=== PATIENT | male | born 1950 | race Caucasian/White ===

== ENCOUNTER 2022-08-04 08:00 | Outpatient (CLI) | payer MEDICARE, OTHER ==
--- NOTE | 2022-08-04 23:53 | XRAY Report ---
PROCEDURE: Chest 2 View X-Ray INDICATIONS: SHORTNESS OF BREATH TECHNIQUE: 2 view(s) of the chest. COMPARISON: None. FINDINGS: Surgical changes and devices: None. Lungs and pleura: Mixed interstitial and alveolar opacity in the right posterior lower lung and ques tionably in the left posterior lower lung. Linear opacity is seen anteriorly in the right upper lobe on the lateral view. No pleural effusion or pneumothorax. Mediastinum: Mediastinal contours are normal. Heart size is normal. Bones and chest wall: No suspicious bony abnormalities. Acute right posterior lateral ninth rib frac ture. A few left rib deformities of remote, healed 6 through ninth rib fractures. Soft tissues appear unremarkable. IMPRESSION: 1. Right infrahilar, possibly bibasilar mixed interstitial and alveolar opacities with differential d iagnosis of infectious pneumonia versus aspiration. 2. At least one visible acute right rib fracture but no evidence of pleural effusion or pneumothorax Reviewed by: Tati Landry MD on 08/04/2022 11:51 PM PDT Approved by: Tati Landry MD on 08/04/2022 11:51 PM PDT Station ID: [id number]
== END 2022-08-04 08:01 | disposition home or self-care (01) ==
LOC: DI.S 08:00
PROVIDERS: ATTEND Physician Assistant
DX: R06.02 Shortness of breath (principal); R05.9 Cough, unspecified; R91.8 Other nonspecific abnormal finding of lung field; S22.31XA Fracture of one rib, right side, initial encounter for closed fracture

== ENCOUNTER 2022-08-05 22:36 | Outpatient (CLI) | payer MEDICARE, OTHER | END 2022-08-05 22:37 | disposition critical access hospital (66) | LOC: EMS 22:36 | DX: R47.81 Slurred speech (principal); R29.810 Facial weakness; R42 Dizziness and giddiness; F10.90 Alcohol use, unspecified, uncomplicated | CPT/HCPCS: A0425; A0427 ==

== ENCOUNTER 2022-08-05 23:04 | Emergency (ER) | payer MEDICARE, OTHER ==
--- NOTE | 2022-08-05 23:04 | ED Physician Documentation ---
PD HPI FOCAL NEURO - Stated complaint Stated Complaint: FELL, RT FACIAL DROOP, WITH SLURRING - History obtained from History obtained from: Patient, Family (spouse) - History of Present Illness Timing - onset: Enter time (21:30), Today Timing - details: Abrupt onset Severity of deficit: Mild Weakness: Face Numbness: No: Face, Arm, Hand, Leg, Foot, Right, Left, Other Associated symptoms: Fall. No: Headache, Nausea / vomiting, Seizure, Syncope, Head injury, Chest pain, Neck pain, Back pain Contributing factors: negative: Anticoagulated Baseline status: positive: A&OX3, ambulatory, indep Similar symptoms before: Has not had sx before Recently seen: Not recently seen - Additional information Additional information: At approximately 9:30 PM tonight, patient was at home with his , went downstairs to have a cigar when he became dizzy, lost his balance and fell. heard him fall and immediately went to check on him, found patient on floor awake, alert but with mild disorientation. called 911. EMS arrived to find patient awake, alert, oriented to person, place, but not time (incorrect year on two tries). EMS notes slurred speech and noted right facial droop. On arrival, patient is AAOx3, slurred speech, NAD, cervical collar in place. Has been drinking alcohol tonight. He was evaluated yesterday in outpatient setting for a fall the previous evening and was found on CXR to have a right-sided broken rib. Patient says he also was prescribed (and is taking) an antibiotic for pneumonia, does not remember which antibiotic it is. He says the antibiotic was prescribed yesterday during the evaluation for the fall. Review of Systems Constitutional: reports: Reviewed and negative Eyes: reports: Reviewed and negative Cardiac: reports: Chest pain / pressure (right-sided chest wall pain associated with recent right rib fracture). denies: Palpitations, Pedal edema, Calf pain Respiratory: reports: Dyspnea, Wheezing. denies: Cough GI: reports: Reviewed and negative : denies: Dysuria, Frequency, Incontinent Skin: reports: Reviewed and negative Musculoskeletal: reports: Reviewed and negative Neurologic: reports: Difficulty speaking (slurred speech), Confused (resolved CONSTRUCTION EQUIPMENT MECHANIC). denies: Generalized weakness, Focal weakness, Numbness, Seizure, Unresponsive, Headache, LOC PD PAST MEDICAL HISTORY - Past Medical History Past Medical History: Yes Cardiovascular: Hypertension, High cholesterol - Allergies Allergies/Adverse Reactions: Allergies Allergy/AdvReac Type Severity Reaction Status Date / Time No Known Drug Allergies Allergy Verified 08/05/22 23:24 - Living Situation Living Situation: reports: With spouse/s.o. Living Arrangement: reports: At home - Social History Does the pt drink ETOH?: Yes PD ED PE NORMAL - Vitals Vital signs reviewed: Yes - General General: Alert and oriented X 3, No acute distress, Well developed/nourished - HEENT HEENT: Atraumatic, PERRL, EOMI - Neck Neck: No bony TTP (collar kept in place; palpation of posterior c-spine through opening in back of cervical collar) - Cardiac Cardiac: RRR (occasinal extra beats), No murmur - Respiratory Respiratory: No respiratory distress, Other (bilateral expiratory wheezing; frequent bronchospastic coughing (to the extent that initial attempt at NIHSS had to be stopped)) - Abdomen Abdomen: Soft, Non tender - Back Back: No spinal TTP - Derm Derm: Normal color, Warm and dry - Extremities Extremities: No edema - Neuro Neuro: Alert and oriented X 3, internal auditor 2-12 intact, No motor deficit, No sensory deficit, Other (slurred speech) Eye Opening: Spontaneous Motor: Obeys Commands Verbal: Oriented GCS Score: 15 - Psych Psych: Normal mood, Normal affect NIHSS - Level of Consciousness Level of consciousness: (0) Alert, Keenly responsive LOC Questions: (0) Answers both Q's correct LOC Commands: (0) Performs both correctly - Gaze Best Gaze: (0) Normal - Visual Visual: (0) No loss - Facial Palsy Facial Palsy: (0) Normal, symmetrical movement - Motor Arms (both separate) Motor Arm (right): (0) No drift Motor Arm (left): (0) No drift - Motor Legs (both separate) Motor Leg (right): (0) No drift Motor Leg (left): (0) No drift - Limb Ataxia Limb Ataxia: (2) Present in 2 limbs - Sensory Sensory: (0) Normal - Best Language Best Language: (0) No aphasia - Dysarthria Dysarthria: (1) [id number] dysarthria (slurred speech) - Extinction and Inattention (formally neg Extinction and inattention: (0) No abnormality - Total Score/Results Total Score/Result: 3 Results - Vitals Vitals: Oxygen O2 Source Room air - EKG (time done) No standard instances Rate: Rate (enter#) (75) Rhythm: NSR [place]: Normal Intervals: Normal OK QRS: Normal Ischemia: Non specific changes (V4, V5) Other comments: Other comments (PVCs) - Labs Labs: Laboratory Tests 08/05/22 08/05/22 08/05/22 23:30 23:30 23:30 WBC 14.2 H RBC 4.42 L Hgb 15.5 Hct 45.6 MCV 103.2 H MCH 35.1 H MCHC 34.0 RDW 12.7 Plt Count 192 MPV 10.5 Neut # (Auto) Not Reportable Lymph # (Auto) Not Reportable [place] # (Auto) Not Reportable Eos # (Auto) Not Reportable Baso # (Auto) Not Reportable Absolute Nucleated RBC Not Reportable Total Counted 100 Band Neuts % (Manual) 5 Abnorm Lymph % (Manual) 0 Nucleated RBC % Not Reportable Neutrophils # (Manual) 11.9 H Lymphocytes # (Manual) 1.4 L Monocytes # (Manual) 0.9 Eosinophils # (Manual) 0.0 Basophils # (Manual) 0.0 Differential Comment MANUAL DIFFERENTIAL Platelet Estimate NORMAL (130-450,000) RBC Morph Micro Appear NORMAL APPEARANCE PT 11.8 INR 1.0 APTT 28.7 Sodium 139 Potassium 2.9 L Chloride 102 Carbon Dioxide 24 Anion Gap 13.0 BUN 31 H Creatinine 0.9 Estimated GFR (MDRD) 84 L Glucose 108 H Calcium 9.7 Total Bilirubin 0.7 AST 29 ALT 26 Alkaline Phosphatase 86 Total Protein 7.1 Albumin 3.5 Globulin 3.6 Albumin/Globulin Ratio 1.0 Lipase 21 L Ethyl Alcohol 258.9 - Rads (name of study) chest xray Radiology: Prelim report reviewed, See rad report CT head Radiology: Prelim report reviewed, See rad report CT neck Radiology: Prelim report reviewed, See rad report PD MEDICAL DECISION MAKING - ED course Complexity details: reviewed results, re-evaluated patient, considered differential, d/w patient ED course: No acute findings on CTH (findings s/o old infarct noted; patient says he has not had previous stroke, thinks he might have but isn't sure). CT cervical spine notes mild anterior wedge deformity T1 of indeterminate age; he does not have any pain c/o nor tenderness to correlate with this finding, thus suspect this is not a new/acute injury. Ethanol level is 259, potassium 2.9. On my exam , including NIHSS, only neurologic deficits are slurred speech and difficulty with [id number] (bilaterally). He has bronchospastic coughing spasms during initial NIHSS to the point of needing to stop the exam, and expiratory wheezing on auscultation. He is given 2.5mg albuterol (nebulized) with significant improvement, no longer coughing nor dyspneic and reports feeling much better regarding his dyspnea/cough. Reexam (auscultation) , only trace end-expiratory wheezing bilaterally. NIHSS was completed after the neb given. I do not appreciate any facial droop during his ED stay. I consulted telestroke, Dr. Duff manager clinical applications. 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 Because the signs/symptoms would all be reasonably attributable to the effects of alcohol intoxication, CTA head/neck not undertaken. The only sign that would not be attributable to alcohol intoxication would be facial droop, but this is not present on my exam nor throughout patient's long ED stay. He is observed for over 9 hours in ED and by the end of my shift he is AAOX3 , clear and articulate speech (slurred speech resolved) and no difficulty with finger/nose testing bilaterally. He ambulates to/from bathroom without difficulty nor assistance and is comfortable with d/c home. Given PO potassium for hypokalemia. Results were d/w patient and advised to follow up for reevaluation regarding tonight's event as well as abnormalities on tests (particularly the hypokalemia). Return precautions discussed. Departure - Departure Disposition: 01 Home, Self Care Clinical Impression: Hypokalemia Alcohol intoxication Qualifiers: Complication of substance-induced condition: uncomplicated Qualified Code(s): F10.920 - Alcohol use, unspecified with intoxication, uncomplicated Condition: Good Instructions: ED Alcohol Intoxication, ED Potassium Deficiency Follow-Up: Chucho Tamez MD [Primary Care Provider] - Within 1 week Comments: The results of tonight's tests are without concerning findings. Your alcohol level was quite high, and this likely contributed to (or even was the cause of) the fall and some of your symptoms (such as slurred speech). Your potassium was low; although low potassium can be a serious problem, your potassium level tonight is not low enough to be of immediate concern. You were given a dose of potassium orally before being discharged, but it is very important that you follow up with your primary care provider within the next week for reevaluation. Discharge Date/Time: 08/06/22 08:48
--- NOTE | 2022-08-05 23:32 | CT Report ---
PROCEDURE: Head W/O Stroke Protocol INDICATIONS: right facial droop, slurred speech TECHNIQUE: Noncontrast 4.5 mm thick angled axial sections acquired from the foramen magnum to the vertex, with c oronal reformats. For radiation dose reduction, the following was used: automated exposure control, adjustment of mA and/or kV according to patient size. COMPARISON: FINDINGS: Image quality: Excellent. CSF spaces: There is mild cerebral volume loss with prominence of the ventricles and sulci. Basal ci sterns are patent. No extra-axial fluid collections. Brain: No intracranial hemorrhage, mass, or mass effect. Richards-white matter interface is preserved. T here are subcortical and periventricular white matter hypodensities consistent with mild chronic smal l vessel ischemic changes. There is a region of hypodensity with volume loss in the left sal[place]on radia ta and external capsule consistent with sequelae of a prior infarct. Small hypodense foci within the bilateral basal ganglia are also suggestive of prior lacunar infarcts. Skull and face: Calvarium and visualized facial bones are intact, without suspicious lesions. Sinuses: Visualized sinuses demonstrate moderate mucosal thickening within the x-ray sinuses, right greater than left, with associated air-fluid level suggestive of acute sinusitis. There is mild mucos al thickening within the ethmoid sinuses. Mastoid air cells are clear. IMPRESSION: 1. No intracranial hemorrhage or other imaging contraindications to TPA. 2. Mild cerebral volume loss and chronic white matter small vessel ischemic changes. 3. 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 Findings discussed with Dr. Alvarez on 08/05/2022 at 11:25 PM. This study fulfills neurological imaging criteria for inclusion or exclusion of acute stroke therapie s based on available published neurological imaging guidelines. Reviewed by: Iker Cheney MD on 08/05/2022 11:39 PM PDT Approved by: Iker Cheney MD on 08/05/2022 11:39 PM PDT Station ID: [id number]
[2022-08-05 23:35] LABS: BASOPHILS % (AUTO) 0.3 %; EOSINOPHILS % (AUTO) 0.6 %; HCT - HEMATOCRIT 45.6 % (42.0-52.0); HGB - HEMOGLOBIN 15.5 g/dL (14.0-18.0); LYMPHOCYTES % (AUTO) 17.1 %; MEAN CORPUSCULAR HEMOGLOBIN 35.1 pg (27.0-31.0); MEAN CORPUSCULAR VOLUME 103.2 fL (80.0-94.0); MEAN PLATELET VOLUME 10.5 fL (7.4-11.4); MONOCYTES % (AUTO) 12.2 %; NEUTROPHILS % (AUTO) 68.2 %; PLT - PLATELET COUNT 192 10^3/uL (130-450); RED BLOOD COUNT 4.42 10^6/uL (4.70-6.10); RED CELL DISTRIBUTION WIDTH 12.7 % (12.0-15.0); WHITE BLOOD COUNT 14.2 x10^3/uL (4.8-10.8)
--- NOTE | 2022-08-05 23:35 | CT Report ---
PROCEDURE: CERVICAL SPINE WO INDICATIONS: fall, neck pain TECHNIQUE: Noncontrast 3 mm thick sections acquired from the skull base to the T4 level. Sagittal and coronal r eformats were then constructed. For radiation dose reduction, the following was used: automated exp osure control, adjustment of mA and/or kV according to patient size. COMPARISON: None. FINDINGS: Image quality: Excellent. Bones: No fractures or subluxation. There is mild anterior compression wedge deformity of the T1 dolores tebral body of indeterminate acuity. There is associated loss of height of up to approximately 40% an teriorly. No retropulsed fragments in the spinal canal. There is multilevel degenerative disc disease and facet joint arthropathy throughout the cervical spine. Visualized superior ribs are intact. Soft tissues: Prevertebral soft tissues are normal in thickness. No paravertebral hematomas. No ap ical pneumothoraces. IMPRESSION: 1. No acute fracture or subluxation in the cervical spine. 2. Mild anterior wedge compression deformity of the T1 vertebral body of indeterminate acuity. Findings discussed with Dr. Alvarez on 08/05/2022 at 11:25 PM. Reviewed by: Iker Cheney MD on 08/05/2022 11:41 PM PDT Approved by: Iker Cheney MD on 08/05/2022 11:41 PM PDT Station ID: [id number]
[2022-08-05 23:39] LABS: ABNORMAL LYMPHS % (MANUAL) 0 %
[2022-08-05 23:43] LABS: PT - PROTHROMBIN TIME 11.8 secs (9.9-12.6)
[2022-08-05 23:48] LABS: ALBUMIN 3.5 g/dL (3.2-5.5); BILIRUBIN,TOTAL 0.7 mg/dL (0.2-1.0); CALCIUM 9.7 mg/dL (8.5-10.3); CREATININE 0.9 mg/dL (0.6-1.2); ETOH - ETHANOL 258.9 mg/dL; POTASSIUM 2.9 mmol/L (3.5-5.0); TOTAL PROTEIN 7.1 g/dL (6.7-8.2)
[2022-08-05 23:50] LABS: PARTIAL THROMBOPLASTIN TIME 28.7 secs (24.9-33.3)
[2022-08-05 23:59] LABS: BAND NEUTROPHILS % (MANUAL) 5 %; DIFFERENTIAL COMMENT MANUAL DIFFERENTIAL; LYMPHOCYTES # (MANUAL) 1.4 10^3/uL (1.5-3.5); LYMPHOCYTES % (MANUAL) 10 %; MONOCYTES # (MANUAL) 0.9 10^3/uL (0.0-1.0); NEUTROPHILS # (MANUAL) 11.9 10^3/uL (1.5-6.6); PLATELET ESTIMATE, MANUAL NORMAL (130-450,000) (NORMAL); RBC MORPHOLOGY (MULTIPLE) NORMAL APPEARANCE (NORMAL)
--- NOTE | 2022-08-06 00:06 | XRAY Report ---
PROCEDURE: Chest 1 View X-Ray INDICATIONS: chest pain TECHNIQUE: One view of the chest was acquired. COMPARISON: 08/04/2022 FINDINGS: Surgical changes and devices: None. Lungs and pleura: No pleural effusions or pneumothorax. Lungs are clear. Mediastinum: Mediastinal contours appear normal. Heart size is normal. Bones and chest wall: There are minimally displaced fractures of the right posterior eighth and nint h ribs. There are also old healed fractures of the left posterior sixth and seventh ribs. Overlying s oft tissues appear unremarkable. IMPRESSION: 1. No acute cardiopulmonary disease. 2. Minimally displaced fractures of the right posterior eighth and ninth ribs. Reviewed by: Iker Cheney MD on 08/06/2022 12:05 AM PDT Approved by: Iker Cheney MD on 08/06/2022 12:05 AM PDT Station ID: [id number]
[2022-08-06] MEDS ORDERED: ALBUTEROL NEB 2.5 MG/3 ML INH STA (00:35)
[2022-08-06 07:40] VITALS: BP 138/82
[2022-08-06] MEDS ORDERED: POTASSIUM CHLORIDE 20 MEQ TABLET PO STA (07:45)
== END 2022-08-06 08:48 | disposition home or self-care (01) ==
LOC: EDUNIT# → ED 23:04
DX: E87.6 Hypokalemia (principal); F10.920 Alcohol use, unspecified with intoxication, uncomplicated; W19.XXXA Unspecified fall, initial encounter; I10 Essential (primary) hypertension
CPT/HCPCS: 36415; 70450; 71045; 72125; 80053; 83690; 85025; 85610; 85730; 93005; 94640; 99284; A9270; G0480; 80320